=== PATIENT | female | born 1955 | race African-American/Black ===

== ENCOUNTER 2021-04-11 06:04 | Inpatient (IN) | payer OTHER, BC ==
[2021-04-04 13:11] VITALS: BMI 42.4
[2021-04-11] MEDS ORDERED: MIDAZOLAM HCL 2 MG/2 ML SINGLE DOSE VIAL ONE ×3 (06:46→10:50)
[2021-04-11] MEDS ORDERED: BUPIVACAINE HCL/PF 0.5% (5MG/ML) 10 ML VIAL ONE (06:46)
[2021-04-11] MEDS ORDERED: SODIUM CHLORIDE 0.9% P/F 10 ML VIAL IJ ONE (06:46)
[2021-04-11] MEDS ORDERED: BUPIVACAINE LIPOSOME/PF (EXPAREL) 266 MG/20 ML VIAL ONE (06:46)
[2021-04-11] MEDS ORDERED: BUPIVACAINE HCL 50 ML ONE (07:01)
[2021-04-11] MEDS ORDERED: ePHEDrine SULFATE 50 MG/1 ML AMPULE ONE (08:05)
[2021-04-11] MEDS ORDERED: SUCCINYLCHOLINE CHLORIDE 200 MG/10 ML SYRINGE ONE (08:05)
[2021-04-11] MEDS ORDERED: PROPOFOL 20 ML ONE ×3 (08:05→10:44)
[2021-04-11] MEDS ORDERED: VANCOMYCIN 1,000 MG VIAL (RESTRICTED TO ID ONLY) ONE (08:17)
[2021-04-11] MEDS ORDERED: DEXAMETHASONE SOD PHOSPHATE 4 MG/1 ML VIAL ONE (08:17)
[2021-04-11] MEDS ORDERED: ceFAZolin SODIUM 1 GM VIAL ONE ×4 (08:17→23:15)
[2021-04-11] MEDS ORDERED: ONDANSETRON 4 MG/2 ML VIAL ONE (08:17)
[2021-04-11] MEDS ORDERED: TRANEXAMIC ACID 1000 MG/10 ML VIAL ONE ×2 (08:17→08:21)
[2021-04-11] MEDS ORDERED: LABETALOL HCL 5 MG/1 ML (100MG/20 ML VIAL) ONE (11:20)
[2021-04-11] MEDS ORDERED: ONDANSETRON 4 MG/2 ML VIAL IVPUSH PRN ×2 (11:27→11:38)
[2021-04-11] MEDS ORDERED: MAGNESIUM HYDROX 2400MG/30ML ORAL SUSPENSION 30 ML CUP PO PRN (11:27)
[2021-04-11] MEDS ORDERED: MAG HYDROX/AL HYDROX/SIMETH 30 ML UNIT-DOSE CUP PO PRN (11:27)
[2021-04-11] MEDS ORDERED: LACTATED RINGERS SOLUTION 1,000 ML IV SCH (11:30)
[2021-04-11] MEDS ORDERED: oxyCODONE HCL 5 MG TABLET PO PRN (11:38)
[2021-04-11] MEDS ORDERED: oxyCODONE HCL 5 MG TABLET ONE (12:12)
[2021-04-11] MEDS ORDERED: ACETAMINOPHEN 500 MG TABLET (FP) ONE (12:13)
[2021-04-11] MEDS: oxyCODONE HCL 5 MG TABLET PO PRN ×4 (12:30→23:20)
[2021-04-11] MEDS: ACETAMINOPHEN 500 MG TABLET (FP) PO SCH ×3 (13:13→23:20)
[2021-04-11] MEDS ORDERED: DEXTROSE 5%-WATER - 100 ML IVPB ONE ×2 (17:37→23:15)
[2021-04-11] MEDS: CEFAZOLIN 3 GM in DEXTROSE 5%-WATER - 100 ML IVPB SCH ×2 (18:34→23:20)
[2021-04-11] MEDS: oxyCODONE HCL 10 MG SUSTAINED ACTING TABLET PO SCH (21:19)
[2021-04-11] MEDS: ASPIRIN COATED 81 MG TABLET.EC PO SCH (21:19)
[2021-04-11] MEDS: SENNOSIDES/DOCUSATE COMBO (SENNA PLUS) TABLET (UD) PO SCH (21:19)
[2021-04-12] MEDS ORDERED: DEXTROSE 5%-WATER - 100 ML IVPB ONE (05:41)
[2021-04-12] MEDS ORDERED: ceFAZolin SODIUM 1 GM VIAL ONE (05:41)
[2021-04-12] MEDS: ACETAMINOPHEN 500 MG TABLET (FP) PO SCH ×3 (05:42→17:27)
[2021-04-12] MEDS: CEFAZOLIN 3 GM in DEXTROSE 5%-WATER - 100 ML IVPB SCH (05:42)
[2021-04-12] MEDS: oxyCODONE HCL 5 MG TABLET PO PRN ×2 (05:42→08:43)
[2021-04-12 08:08] LABS: CALCIUM 8.9 mg/dl (8.5-10); CREATININE 0.9 mg/dl (0.55-1.3)
[2021-04-12 08:47] LABS: HEMATOCRIT 31.6 % (32.4-45.2); HEMOGLOBIN 10.1 GM/dL (10.7-15.3); MCH 26.4 pg (25.7-33.7); MEAN CELL VOLUME 82.3 fl (80-96); MEAN PLT VOLUME 9.9 fl (7.5-11.1); PLATELET COUNT 170 10^3/uL (134-434); RBC 3.85 M/mm3 (3.60-5.2); RDW 16.7 % (11.6-15.6); WHITE BLOOD COUNT 7.3 K/mm3 (4.0-10.0)
[2021-04-12] MEDS: PANTOPRAZOLE 40 MG TABLET PO SCH (09:46)
[2021-04-12] MEDS: SENNOSIDES/DOCUSATE COMBO (SENNA PLUS) TABLET (UD) PO SCH ×2 (09:46→21:08)
[2021-04-12] MEDS: ASPIRIN COATED 81 MG TABLET.EC PO SCH ×2 (09:46→21:08)
[2021-04-12] MEDS: LOSARTAN POTASSIUM 50 MG TABLET PO SCH (09:47)
[2021-04-12] MEDS: CELECOXIB 200 MG CAPSULE PO SCH (09:47)
[2021-04-12] MEDS: oxyCODONE HCL 10 MG SUSTAINED ACTING TABLET PO SCH ×2 (09:47→21:08)
[2021-04-12] MEDS: NIFEdipine E.R. 90 MG TABLET PO SCH (09:48)
[2021-04-12] MEDS ORDERED: PATIENT'S OWN MEDICATION (NON-FORMULARY) (Empagliflozin [Jardiance] 25 MG Tablet) PO SCH (10:00)
[2021-04-12] MEDS ORDERED: PATIENT'S OWN MEDICATION (NON-FORMULARY) (Metoprolol Tartrate [Metoprolol Tartrate] 100 MG PO SCH (10:00)
[2021-04-12] MEDS ORDERED: PATIENT'S OWN MEDICATION (NON-FORMULARY) (Linagliptin [Tradjenta] 5 MG Tablet) PO SCH (10:00)
[2021-04-12] MEDS: INSULIN (NOVOLOG) ASPART 100 UNITS/ML 10ML VIAL SQ SCH ×3 (11:17→21:07)
[2021-04-13] MEDS: ACETAMINOPHEN 500 MG TABLET (FP) PO SCH ×3 (00:42→12:18)
[2021-04-13] MEDS: oxyCODONE HCL 5 MG TABLET PO PRN (07:09)
[2021-04-13] MEDS: INSULIN (NOVOLOG) ASPART 100 UNITS/ML 10ML VIAL SQ SCH ×2 (07:10→11:59)
[2021-04-13 09:21] LABS: HEMATOCRIT 30.5 % (32.4-45.2); HEMOGLOBIN 9.8 GM/dL (10.7-15.3); MCH 26.3 pg (25.7-33.7); MCHC 32.1 g/dl (32.0-36.0); MEAN CELL VOLUME 81.9 fl (80-96); MEAN PLT VOLUME 9.8 fl (7.5-11.1); PLATELET COUNT 156 10^3/uL (134-434); RBC 3.73 M/mm3 (3.60-5.2); RDW 16.8 % (11.6-15.6); WHITE BLOOD COUNT 9.9 K/mm3 (4.0-10.0)
[2021-04-13] MEDS: ASPIRIN COATED 81 MG TABLET.EC PO SCH (10:07)
[2021-04-13] MEDS: LOSARTAN POTASSIUM 50 MG TABLET PO SCH (10:07)
[2021-04-13] MEDS: NIFEdipine E.R. 90 MG TABLET PO SCH (10:08)
[2021-04-13] MEDS: PANTOPRAZOLE 40 MG TABLET PO SCH (10:08)
[2021-04-13] MEDS: SENNOSIDES/DOCUSATE COMBO (SENNA PLUS) TABLET (UD) PO SCH (10:08)
[2021-04-13] MEDS: CELECOXIB 200 MG CAPSULE PO SCH (10:08)
[2021-04-13] MEDS: oxyCODONE HCL 10 MG SUSTAINED ACTING TABLET PO SCH (10:09)
[2021-04-13 14:05] VITALS: BP 140/52; PULSE 86; TEMP 98.4
== END 2021-04-13 15:00 | disposition home or self-care (01) | DRG 470 ==
LOC: FM/S 06:04 → EDSEX 08:00 → FM/S 13:13
PROVIDERS: ADMIT Orthopaedic Surgery Orthopaedic Surgery of the Spine; ATTEND Orthopaedic Surgery Orthopaedic Surgery of the Spine
PROC: 0SRD0J9 Replacement of Left Knee Joint with Synthetic Substitute, Cemented, Open Approach (ICD-10-PCS; principal; 2021-04-11 08:54)
DX: M17.12 Unilateral primary osteoarthritis, left knee (principal); Z68.41 Body mass index [BMI] 40.0-44.9, adult; I10 Essential (primary) hypertension; E78.5 Hyperlipidemia, unspecified; E11.9 Type 2 diabetes mellitus without complications; E66.9 Obesity, unspecified
CPT/HCPCS: 36415; 73560-TC-LT-FY; 80048; 82962; 85027; 88305-TC; 88311-TC; 94760; 97010-GP; 97116-GP; 97163-GP; C9803; U0003; U0005